=== PATIENT | male | born 2005 | race Caucasian/White ===

== ENCOUNTER 2024-06-16 12:13 | Emergency (ER) | payer OTHER, SELFPAY ==
--- NOTE | 2024-06-16 12:17 | ED_ITS ---
HPI - Eye Problem General Chief complaint: Eye Problems Stated complaint: LT Eye Swollen Time Seen by Provider: 06/16/24 12:17 Source: patient, RN notes reviewed and old records reviewed Mode of arrival: ambulatory Limitations: no limitations History of Present Illness HPI Narrative: patient presents with complaints of swelling to left upper eyelid. denies any injury or trauma. Denies any visual disturbance. Wears glasses at baseline, no contacts. States that symptoms be 2 or 3 days ago, getting worse. Does report a little bit of associated pain. No discharge noted. Voices no other concerns or complaints today Related Data Allergies Allergy/AdvReac Type Severity Reaction Status Date / Time No Known Allergies Allergy Verified 06/16/24 12:18 Review of Systems Review of Systems: All systems reviewed & are unremarkable except as noted in HPI and below Constitutional: Constitutional: Reports no additional constitutional complaints Eyes: Eyes: Reports as per HPI ENT: Reports system reviewed and no additional complaints, except as documented Cardiovascular: Cardiovascular: Reports no additional cardiovascular complaints Respiratory: Respiratory: Reports no additional respiratory complaints Gastrointestinal: Gastrointestinal: Reports no additional gastrointestinal complaints PMFSH Comments At the time of my signature, I reviewed and agree with the nursing past medical, surgical, social, and family history. There is no relevant family history pertinent to the patient complaint. Exam Const: General: cooperative, no acute distress, alert and awake Orientation/consciousness: oriented to person, oriented to place and oriented to time HENMT: Head: normal to inspection Eyes: Eyelids: eyelid abnormality left upper eyelid swelling, tenderness and other ( pustule near lash line at outer canthus) Pupils: Equal, round and reactive pupils present EOM: EOMs intact bilaterally Resp: Effort & Inspection: normal respiratory effort and able to speak in complete sentences Auscultation: clear to auscultation bilaterally, no crackles, no rales, no rhonchi and no wheezes Cardio: Palpation: normal PMI Rate: regular rate Rhythm: regular rhythm Heart sounds: S1 normal heart sound present and S2 normal heart sound present Neuro: General: oriented to person, oriented to place and oriented to time Cranial nerves: Yes CN's II-XII intact bilaterally Psych: Appearance: grossly normal Thought process: Normal thought process present Insight: Good insight present (Psych) Judgement: Good judgement present (Psych) Course Course Level of Care: Express Care Visit Vital Signs Vital signs: Reviewed MDM - Eye Problem MDM Narrative Medical decision making narrative: history and exam consistent with chalazion. Patient nontoxic appearing, stable for discharge home p.o. an ophthalmic antibiotic therapy. Advised not to wear contact lenses Differential Diagnosis Differential diagnosis: Likely conjunctivitis and periorbital cellulitis Medical Records Attestation: I reviewed the patient's medical records. Discharge Plan Discharge Clinical Impression: Chalazion left upper eyelid Patient Disposition: Home, Self-Care Condition: Stable Instructions: Antibiotic Form, Chalazion (ED) Additional Instructions: take medications as prescribed. Follow with primary care provider. Emergency department for new or worsening symptoms. Warm soaks to the affected eye 4 times daily Patient Language: Bhutanese Prescriptions: New amoxicillin-pot clavulanate 875-125 mg tablet 1 tablet PO Q12H Qty: 14 0RF tobramycin 0.3 % drops 1 drp LEFT EYE Q4H 7 Days Qty: 5 0RF Follow-up/Referrals: UNKNOWN,DOCTOR [Non-Staff] - Stand Alone Forms: Work/School Release IP Time of Disposition: 12:41
--- OUTSIDE RECORDS SUMMARY | 2024-06-16 12:21 | XMS_ITS | Clinical Summary ---
Author Organization [facility] Address Formerly [facility] [place] [address] Care Team Providers Care Senior Logistics Manager Name Role Phone None, Provider MD Primary Care Provider Unavaila ble Allergies No known active allergies Medications No known medications Encounters Date Type Department Care Team Description 03/31/2024 3:56 PM INSTRUMENTATION FITTER - 03/31/2024 5:20 PM INSTRUMENTATION FITTER Emergency [facility] Emergency Room [id number] [place], [place] [id number] Samy Bob MD Back Pain Discharge Disposition: Home or Self Care (Routine Discharge) 03/31/2024 Travel from Last 3 Months Social History Tobacco Use Types Packs/Day Years Used Date Smoking Tobacco: Never Smokeless Tobacco: Never Tobacco Cessation:Counseling Given: Not Answered Alcohol Use Standard Drinks/Week Comments Yes 0 (1 standard drink = 0.6 oz pur e alcohol) occasional Sex and Gender Information Value Date Recorded Sex Assigned at Not on file Legal Sex Male 3:56 PM INSTRUMENTATION FITTER Gender Identity Not on file Sexual Orientation Not on file Last Filed Vital Signs Vital Sign Reading Time Taken Comments Blood Pressure 110/56 03/31/2024 5:17 PM INSTRUMENTATION FITTER Pulse 71 03/31/2024 5:17 PM INSTRUMENTATION FITTER Temperature 37.2 C (99 F) 03/31/2024 5:17 PM INSTRUMENTATION FITTER Respiratory Rate 16 03/31/2024 5:17 PM INSTRUMENTATION FITTER Oxygen Saturation 97% 03/31/2024 5:17 PM INSTRUMENTATION FITTER Inhaled Oxygen Concentration - - Weight 66.9 kg (147 lb 7.8 oz) 03/31/2024 3:58 P M INSTRUMENTATION FITTER Height 180.3 cm (5' 11 ) 03/31/2024 3:58 PM INSTRUMENTATION FITTER Body Mass Index 20.57 03/31/2024 3:58 PM INSTRUMENTATION FITTER Plan of Treatment Health Maintenance Due Date Last Done Comments Annual Physical 2006 HPV Vaccines (1 - Male 3-dos e series) 2018 Meningococcal B Vaccine (1 o f 2 - Standard) 2019 Hepatitis C 2021 DTaP, Tdap and Td Vaccines ( 1 - Tdap) 2022 Hepatitis B Vaccines (1 of 3 - 19+ 3-dose series) 2022 COVID-19 Vaccine (1 - 2023-2 5 season) 2023 Influenza Adult (#1) 2024 Meningococcal Vaccine Aged Out No darell meme eligible based on patient's age to complete this topic Pneumococcal Vaccine: Pediat rics (0 to 5 Years) and At-Risk Patients (6 to 64 Years) Aged Out No longer eligible b ased on patient's age to complete this topic RSV Immunizations Under 20 Months Aged Out No longer eligible based on patient's age to complete this topic Procedures Procedure Name Priority Date/Time Associated Diagnosis Comments XR THOR SPINE 3V STAT 03/31/2024 4:55 PM INSTRUMENTATION FITTER XR CHEST PA+LAT STAT 03/31/2024 4:55 PM INSTRUMENTATION FITTER from Last 3 Months Results * XR THOR SPINE 3V (03/31/2024 4:55 PM INSTRUMENTATION FITTER) Anatomical Region Laterality Modality Spine Radiographic Lynn ging 03/31/2024 4:58 PM INSTRUMENTATION FITTER Impressions 03/31/2024 5:03 PM INSTRUMENTATION FITTER IMPRESSION: No acute or aggressive, or localizing osseous abnormality. Referred By: Interpreted By: Erik Narayan MD, 03/31/2024 4:58 PM Narrative 03/31/2024 5:03 PM INSTRUMENTATION FITTER [facility] [id number] [place] [address] EXAMINATION: XR THOR SPINE 3V INDICATIONS: MID THORACIC SPINE PAIN AFTER LIFTING AT WORK COMPARISON: NONE FINDINGS: Frontal and lateral radiographs of the thoracic spine with dedicated swimmer's view of the cervicothoracic junction. 12 ribs bilaterally without cervical rib or vertebral fusion anomaly. The normal thoracic kyphosis is maintained. The vertebral body heights are maintained. The visualized spinous and transverse processes are intact. No spondylolisthesis or spondylolysis. No fracture or aggressive osseous lesion. The intervertebral disc spaces are maintained. The visualized osseous thorax is intact. The visualized lungs are clear and the cardiomediastinal silhouette is within normal limits. Procedure Note Erik Narayan MD - 03/31/2024 [facility] [address] [facility] [place] [address] EXAMINATION: XR THOR SPINE 3V INDICATIONS: MID THORACIC SPINE PAIN AFTER LIFTING AT WORK COMPARISON: NONE FINDINGS: Frontal and lateral radiographs of the thoracic spine with dedicatedswimmer's view of the cervicothoracic junction. 12 ribs bilaterally without cervical rib or vertebral fusion anomaly. The normal thoracic kyphosis is maintained. The vertebral body heights are maintained. The visualized spinous and transverse processes are intact. No spondylolisthesis or spondylolysis. No fracture or aggressive osseous lesion. The intervertebral disc spaces are maintained. The visualized osseous thorax is intact. The visualized lungs are clear and the cardiomediastinal silhouette iswithin normal limits. IMPRESSION: No acute or aggressive, or localizing osseous abnormality. Referred By: Interpreted By: Erik Narayan MD, 03/31/2024 4:58 PM Samy Bob MD GENERAL IMAGING Final R esult * XR CHEST PA+LAT (03/31/2024 4:55 PM INSTRUMENTATION FITTER) Anatomical Region Laterality Modality Chest Radiographic Lynn ging 03/31/2024 4:58 PM INSTRUMENTATION FITTER Impressions 03/31/2024 5:00 PM INSTRUMENTATION FITTER IMPRESSION: No radiographic evidence of acute cardiopulmonary disease. Referred By: Interpreted By: Erik Narayan MD, 03/31/2024 4:58 PM Narrative 03/31/2024 5:00 PM INSTRUMENTATION FITTER [facility] [address] [place] [address] EXAMINATION: XR CHEST PA+LAT INDICATIONS: BACK PAIN AFTER LIFTING AT WORK, PAIN WITH BREATHING, PNEUMO? COMPARISON: NONE FINDINGS: Frontal and lateral chest radiographs limited by exclusion of the costophrenic angles on frontal view demonstrate normal lung expansion without consolidation, effusion, or pneumothorax. No bulky hilar adenopathy. The cardiomediastinal contours are maintained. Heart size is normal. No subdiaphragmatic free air. The osseous thorax is intact without displaced rib fracture. No acute or aggressive osseous abnormality. Procedure Note Erik Narayan MD - 03/31/2024 [facility] [address] [place] [address] EXAMINATION: XR CHEST PA+LAT INDICATIONS: BACK PAIN AFTER LIFTING AT WORK, PAIN WITH BREATHING,PNEUMO? COMPARISON: NONE FINDINGS: Frontal and lateral chest radiographs limited by exclusion of thecostophrenic angles on frontal view demonstrate normal lung expansionwithout consolidation, effusion, or pneumothorax. No bulky hilar adenopathy. The cardiomediastinal contours are maintained. Heart size is normal. No subdiaphragmatic free air. The osseous thorax is intact without displaced rib fracture. No acute or aggressive osseous abnormality. IMPRESSION: No radiographic evidence of acute cardiopulmonary disease. Referred By: Interpreted By: Erik Narayan MD, 03/31/2024 4:58 PM Samy Bob MD GENERAL IMAGING Final R esult from Last 3 Months Insurance Care Teams Senior Logistics Manager Relationship Specialty Start Date End Date None, Provider, MD PCP - General UNKNOWN PHYSICIAN SPECIALTY 03/31/24
[2024-06-16 12:25] VITALS: BP 128/72; PULSE 68; RESP 18; TEMP 36.9; O2SAT 99
== END 2024-06-16 12:42 | disposition home or self-care (01) ==
PROVIDERS: Emergency Provider Nurse Practitioner Family
DX: H00.14 Chalazion left upper eyelid (principal); Z86.16 Personal history of COVID-19
CPT/HCPCS: 99203; G0463